=== PATIENT | male | born 1965 | race Caucasian/White ===

== ENCOUNTER 2021-03-09 06:51 | Emergency (ER) | payer BC ==
[2021-03-09] MEDS ORDERED: diltiaZEM INJ 5 MG/ML VIAL IVP STA ×2 (07:18→07:47)
--- NOTE | 2021-03-09 07:20 | ED Physician Documentation ---
PD HPI CHEST PAIN - Stated complaint Stated Complaint: RAPID HR/CHEST TIGHTNESS - Chief complaint Chief Complaint: Cardiac - History obtained from History obtained from: Patient - Additional information Additional information: 55-year-old gentleman with no history of heart issues presents with a "slight catch in my breath" and "slight pressure chest pressure" starting at 11 PM last night. His apple watch which she has had for several years notified him that he was in A. fib. He has no prior history of that. No pedal edema or calf pain. No history of heart troubles. No current primary care physician. Review of Systems Ten Systems: 10 systems reviewed and negative Constitutional: denies: Fatigue Cardiac: denies: Pedal edema, Calf pain Respiratory: denies: Cough PD PAST MEDICAL HISTORY - Past Medical History Past Medical History: Yes Cardiovascular: Hypertension Respiratory: None Neuro: None Endocrine/Autoimmune: Type 2 diabetes GI: None : None HEENT: None Psych: None Musculoskeletal: None Derm: None - Past Surgical History Past Surgical History: Yes HEENT: Tonsil/Adenoidectomy - Allergies Allergies/Adverse Reactions: Allergies Allergy/AdvReac Type Severity Reaction Status Date / Time Penicillins AdvReac Unknown Verified 03/09/21 07:06 - Social History Does the pt smoke?: No Smoking Status: Never smoker Does the pt drink ETOH?: Yes Does the pt have substance abuse?: No - Immunizations Immunizations are current?: No - POLST Patient has POLST: No PD ED PE NORMAL - Vitals Vital signs reviewed: Yes - General General: Alert and oriented X 3, No acute distress - HEENT HEENT: PERRL, EOMI - Neck Neck: Supple, no meningeal sign, No bony TTP - Cardiac Cardiac: Other (Rapid and irregular without murmur) - Respiratory Respiratory: No respiratory distress, Clear bilaterally - Abdomen Abdomen: Soft, Non tender - Back Back: No CVA TTP, No spinal TTP - Derm Derm: Normal color, Warm and dry - Extremities Extremities: No edema, No calf tenderness / cord - Neuro Neuro: Alert and oriented X 3, Normal speech Results - Vitals Vitals: Vital Signs - 24 hr 03/09/21 03/09/21 03/09/21 07:04 07:17 07:31 Temperature 36.6 C Heart Rate 155 H 181 H 117 H Respiratory 16 11 L 16 Rate Blood Pressure 143/88 H 143/88 H 114/70 O2 Saturation 97 98 98 03/09/21 03/09/21 03/09/21 09:57 10:05 10:09 Temperature Heart Rate 140 H 135 H 87 Respiratory 16 14 14 Rate Blood Pressure 108/78 104/87 H O2 Saturation 99 98 Oxygen O2 Source Room air - EKG (time done) 0703 Rate: Rate (enter#) (172) Rhythm: Atrial fibrillation Counselor: Normal QRS: Low voltage Ischemia: No: ST elevation c/w ischemia, ST depression - Labs Labs: Laboratory Tests 03/09/21 03/09/21 03/09/21 07:15 07:15 07:15 WBC 11.4 H RBC 4.89 Hgb 15.2 Hct 43.3 MCV 88.5 MCH 31.1 H MCHC 35.1 RDW 13.5 Plt Count 223 MPV 9.9 Neut # (Auto) 6.4 Lymph # (Auto) 3.3 [place] # (Auto) 0.7 Eos # (Auto) 0.8 H Baso # (Auto) 0.1 Absolute Nucleated RBC 0.00 Nucleated RBC % 0.0 Sodium 138 Potassium 4.0 Chloride 105 Carbon Dioxide 23 Anion Gap 10.0 BUN 23 H Creatinine 1.1 Estimated GFR (MDRD) 69 L Glucose 167 H Calcium 9.0 Magnesium 1.4 L Total Bilirubin 1.0 AST 31 ALT 52 Alkaline Phosphatase 42 Total Protein 6.6 L Albumin 4.1 Globulin 2.5 Albumin/Globulin Ratio 1.6 Triglycerides 162 H Cholesterol 204 H LDL Cholesterol, Calc 133 H VLDL Cholesterol 32 HDL Cholesterol 39 L LDL/HDL Ratio 3.4 Cholesterol/HDL Ratio 5.2 TSH 5.16 Procedures - Procedural sedation Sedation prep: Informed consent, Time out completed, PE performed, ASA 2 - mild disease (DM/obesity), IV O2 monitor, ET CO2 monitor, RT present Sedation Medications: propofol Mallampati classification: I Patient status during sedation: Unresponsive Sedation recovery: Recovered uneventfully Time in sedation (Minutes): 10 - Cardioversion 1 Time of attempt: 09:50 Indication: Tachyarrhythmia Risks, benefits, alternatives explained to: Pt CS via: Pads, AP approach Sync: 50j, 100j, 150j Post cardioversion rhythm: NSR (Three shocks, sequentially going from 50 to 100 to 150 J, converted with 150J) Performed by: ED MD [facility] - ED course ED course: 55-year-old gentleman with no history of heart problems presents with symptomatic rapid atrial fibrillation since 11 PM last night. Initially given 20 and then 10 mg of diltiazem with rate control and procainamide drip. That was ineffective at cardioversion and subsequently electrically cardioverted with resolution of his symptoms. Departure - Departure Disposition: 01 Home, Self Care Clinical Impression: Atrial fibrillation Qualifiers: Atrial fibrillation type: paroxysmal Qualified Code(s): I48.0 - Paroxysmal atrial fibrillation Condition: Good Record reviewed to determine appropriate education?: Yes Instructions: Atrial Fibrillation Dc Follow-Up: Dexter Ludwig MD [Physician No Access] - Comments: You were seen today for symptomatic and rapid atrial fibrillation. Initially were given diltiazem for rate control and then a procainamide drip. We subsequently shocked you out of it, it required 150 J (50 and 100 J were ineffective). We sedated you with 100 mg of propofol. The physician on-call for ER follow-ups next week is Dexter Ludwig, give his office a call, the numbers on this form. Until follow-up, take a baby aspirin a day. Your total cholesterol is only slightly elevated at 204, but your LDL "bad cholesterol" is on the high side at 133 and your HDL, "good cholesterol" is low at 39.
[2021-03-09 07:27] LABS: BASOPHILS # (AUTO) 0.1 10^3/uL (0.0-0.1); BASOPHILS % (AUTO) 0.6 %; EOSINOPHILS # (AUTO) 0.8 10^3/uL (0.0-0.7); HCT - HEMATOCRIT 43.3 % (42.0-52.0); HGB - HEMOGLOBIN 15.2 g/dL (14.0-18.0); LYMPHOCYTES # (AUTO) 3.3 10^3/uL (1.5-3.5); LYMPHOCYTES % (AUTO) 29.1 %; MEAN CORPUSCULAR HEMOGLOBIN 31.1 pg (27.0-31.0); MEAN CORPUSCULAR HGB CONC 35.1 g/dL (32.0-36.0); MEAN CORPUSCULAR VOLUME 88.5 fL (80.0-94.0); MEAN PLATELET VOLUME 9.9 fL (7.4-11.4); MONOCYTES # (AUTO) 0.7 10^3/uL (0.0-1.0); MONOCYTES % (AUTO) 6.5 %; NEUTROPHILS # (AUTO) 6.4 10^3/uL (1.5-6.6); NEUTROPHILS % (AUTO) 56.5 %; PLT - PLATELET COUNT 223 10^3/uL (130-450); RED BLOOD COUNT 4.89 10^6/uL (4.70-6.10); RED CELL DISTRIBUTION WIDTH 13.5 % (12.0-15.0); WHITE BLOOD COUNT 11.4 x10^3/uL (4.8-10.8)
[2021-03-09] MEDS ORDERED: PROCAINAMIDE 1,000 MG in SODIUM CHLORIDE 0.9% 240 ML IV STA (07:28)
[2021-03-09 07:50] LABS: ALBUMIN 4.1 g/dL (3.2-5.5); ALBUMIN/GLOBULIN RATIO 1.6 (1.0-2.2); ALKALINE PHOSPHATASE 42 IU/L (42-121); ALT ALANINE AMINOTRANSFERASE 52 IU/L (10-60); AST ASPARTATE AMINOTRANSFERASE 31 IU/L (10-42); BUN - BLOOD UREA NITROGEN 23 mg/dL (6-20); CARBON DIOXIDE - CO2 23 mmol/L (21-32); CHLORIDE 105 mmol/L (101-111); CHOL/HDL RATIO 5.2 (<5.0); CHOLESTEROL 204 mg/dL; CREATININE 1.1 mg/dL (0.6-1.2); GFR - MDRD 69 (>89); GLUCOSE 167 mg/dL (70-100); HDL CHOLESTEROL 39 mg/dL; LDL CHOLESTEROL,CALCULATED 133 mg/dL; LDL/HDL RATIO 3.4 (<3.6); MAGNESIUM 1.4 mg/dL (1.7-2.8); SODIUM 138 mmol/L (135-145); TOTAL PROTEIN 6.6 g/dL (6.7-8.2); TRIGLYCERIDES 162 mg/dL; VLDL CHOLESTEROL 32 mg/dL
[2021-03-09] MEDS ORDERED: PROPOFOL 200 MG/20 ML VIAL IVP STA (09:32)
[2021-03-09 10:45] VITALS: BP 109/79
== END 2021-03-09 10:44 | disposition home or self-care (01) ==
LOC: ED 06:51
DX: I48.0 Paroxysmal atrial fibrillation (principal); E78.00 Pure hypercholesterolemia, unspecified
CPT/HCPCS: 36415; 80053; 80061; 83721; 83735; 84443; 85025; 92960; 93005; 96365; 96366; 96375; 99152; 99283; 99285; J2690; 94770